=== PATIENT | male | born 1940 | race Caucasian/White ===

== ENCOUNTER 2022-08-12 08:24 | Oncology outpatient (recurring) (ONCR) | payer MEDICARE, MEDICAID, SELFPAY | END 2022-09-03 23:59 | disposition home or self-care (01) | PROVIDERS: Visit Provider Internal Medicine Hematology & Oncology | DX: C18.7 Malignant neoplasm of sigmoid colon (principal); C78.6 Secondary malignant neoplasm of retroperitoneum and peritoneum; Z93.3 Colostomy status; Z90.49 Acquired absence of other specified parts of digestive tract; Z87.891 Personal history of nicotine dependence | CPT/HCPCS: 99204 ==

== ENCOUNTER 2022-09-16 10:20 | Outpatient (CLI) | payer MEDICARE, MEDICAID, SELFPAY ==
--- NOTE | 2022-09-16 10:29 | FL_ITS ---
WS: [id number] FL enema w gastrografin [id number] REASON FOR EXAM: RECTOSIGMOID CA/COLONIC MASS/S/P PARTIAL RESECTION OF COLON FLUOROSCOPY TIME: 5min [id number] # OF SPOT FILMS: Multiple FINDINGS: Marr catheter was advanced through the ostomy site (at the level of the left transverse process of L 3) and into the mid left colon. The Marr balloon was inflated and water-soluble contrast injected de monstrating a normal remaining left colon, transverse colon, and right colon with filling of the appe ndix. Marr catheter was inserted into the rectum and water-soluble contrast injected. A very small rectal pouch is present with the distal extent at the level of the last sacral segment. There is no extravas ation of contrast from the rectal pouch. FL/FL enema w gastrografin [id number] IMPRESSION: Examination of the postoperative colon, per rectum and per colostomy as above.
[2022-09-16] MEDS: diatrizoate meglumine 120 mL Sol PR (12:28)
== END 2022-09-16 10:21 | disposition home or self-care (01) ==
LOC: RAD 10:25
DX: K63.89 Other specified diseases of intestine (principal); C19 Malignant neoplasm of rectosigmoid junction; Z90.49 Acquired absence of other specified parts of digestive tract
CPT/HCPCS: 74270; Q9963

== ENCOUNTER 2022-12-10 10:49 | Oncology outpatient (recurring) (ONCR) | payer MEDICARE, MEDICAID, SELFPAY ==
[2022-12-10 10:53] VITALS: BP 141/78; RESP 18; TEMP 36.8; O2SAT 98
[2022-12-10 11:23] LABS: Basophils # 0.1 10^3/uL (0.0-0.1); Basophils % 1.5 %; Eosinophils # 0.5 10^3/uL (0.0-0.8); Eosinophils % 5.7 %; Hematocrit 46.8 % (42.0-52.0); Hemoglobin 14.4 g/dL (11.7-16.6); Lymphocytes # 1.8 10^3/uL (0.8-4.8); Lymphocytes % 19.9 %; Mean Corpuscular HGB Conc 30.8 g/dL (30.0-36.0); Mean Corpuscular Hemoglobin 26.4 pg (28.0-34.0); Mean Corpuscular Volume 85.9 fl (80-94); Mean Platelet Volume 9.8 fL (7.4-10.4); Monocytes # 0.8 10^3/uL (0.2-0.9); Neutrophils # 5.62 10^3/uL (1.8-7.7); Neutrophils % 63.7 %; Nucleated Red Blood Cells % 0 %; Platelet Count 289 10^3/cmm (130-400); Red Blood Count 5.45 10^6/uL (4.1-5.3); Red Cell Distribution Width 15.5 % (12.1-15.1); White Blood Count 8.8 10^3/uL (4.0-10.0)
[2022-12-10 12:09] LABS: Carcinoembryonic Antigen 1.9 ng/mL (0.0-4.7)
[2022-12-10 12:20] LABS: Alanine Aminotransferase 13 U/L (0-41); Albumin Level 4.3 g/dL (3.5-5.2); Alkaline Phosphatase 61 U/L (40-130); Anion Gap 16.2 (5-19); Aspartate Amino Transferase 14 U/L (0-40); Blood Urea Nitrogen 12 mg/dL (8-23); Calcium 9.3 mg/dL (8.5-10.5); Carbon Dioxide 24 mmol/L (22-29); Chloride 100 mmol/L (98-107); Globulin 2.9 g/dL (1.3-4.6); Glucose 73 mg/dL (65-115); Osmolality Calculated 280 mOsm/kg (285-295); Potassium 4.2 mmol/L (3.5-5.1); Sodium 136 mmol/L (136-145); Total Bilirubin 0.7 mg/dL (0.15-1.2); Total Protein 7.2 g/dL (6.6-8.7)
== END 2023-01-03 23:59 | disposition home or self-care (01) ==
PROVIDERS: Visit Provider Internal Medicine Hematology & Oncology
DX: C18.7 Malignant neoplasm of sigmoid colon (principal); C78.6 Secondary malignant neoplasm of retroperitoneum and peritoneum; Z93.3 Colostomy status; Z90.49 Acquired absence of other specified parts of digestive tract; Z87.891 Personal history of nicotine dependence
CPT/HCPCS: 36415; 80053; 82378; 85025; 99214

== ENCOUNTER 2023-03-12 11:04 | Oncology outpatient (recurring) (ONCR) | payer MEDICARE, MEDICAID, SELFPAY ==
[2023-03-12 11:06] VITALS: BMI 29.7
[2023-03-12 11:07] VITALS: BP 129/75; PULSE 74; RESP 18; TEMP 36.4; O2SAT 96
[2023-03-12 11:28] LABS: Basophils # 0.2 10^3/uL (0.0-0.1); Basophils % 1.6 %; Eosinophils # 0.6 10^3/uL (0.0-0.8); Eosinophils % 5.8 %; Hematocrit 49.5 % (37-53); Lymphocytes # 1.8 10^3/uL (0.8-4.8); Lymphocytes % 19.3 %; Mean Corpuscular HGB Conc 32.9 g/dL (30-55); Mean Corpuscular Hemoglobin 29.4 pg (27-33); Mean Corpuscular Volume 89.2 fl (82-101); Mean Platelet Volume 9.3 fL (7.4-10.4); Monocytes # 0.9 10^3/uL (0.2-0.9); Monocytes % 9.7 %; Neutrophils # 5.96 10^3/uL (1.8-7.7); Neutrophils % 63.2 %; Nucleated Red Blood Cells % 0 %; Platelet Count 267 10^3/cmm (157-399); Red Blood Count 5.55 10^6/uL (3.85-5.65); Red Cell Distribution Width 14.6 % (12.1-15.1); White Blood Count 9.44 10^3/uL (3.29-11.43)
[2023-03-12 11:52] LABS: Carcinoembryonic Antigen 1.8 ng/mL (0.0-4.7)
[2023-03-12 12:03] LABS: Alanine Aminotransferase 20 U/L (0-41); Albumin Level 4.4 g/dL (3.5-5.2); Alkaline Phosphatase 50 U/L (40-130); Anion Gap 15.6 (5-19); Aspartate Amino Transferase 19 U/L (0-40); Blood Urea Nitrogen 14 mg/dL (8-23); Calcium 9.5 mg/dL (8.5-10.5); Carbon Dioxide 25 mmol/L (22-29); Chloride 101 mmol/L (98-107); Globulin 2.7 g/dL (1.3-4.6); Glucose 90 mg/dL (65-115); Osmolality Calculated 284 mOsm/kg (285-295); Potassium 4.6 mmol/L (3.5-5.1); Sodium 137 mmol/L (136-145); Total Bilirubin 0.4 mg/dL (0.15-1.2); Total Protein 7.1 g/dL (6.6-8.7)
== END 2023-04-05 23:59 | disposition home or self-care (01) ==
PROVIDERS: Internal Medicine Medical Oncology; Visit Provider Internal Medicine Hematology & Oncology
DX: C18.7 Malignant neoplasm of sigmoid colon (principal); C78.6 Secondary malignant neoplasm of retroperitoneum and peritoneum; Z93.3 Colostomy status; Z90.49 Acquired absence of other specified parts of digestive tract; Z87.891 Personal history of nicotine dependence; Z53.9 Procedure and treatment not carried out, unspecified reason
CPT/HCPCS: 36415; 80053; 82378; 85025; 99214

== ENCOUNTER 2023-06-11 09:03 | Outpatient (CLI) | payer MEDICARE, MEDICAID, SELFPAY ==
[2023-06-11] MEDS: iohexol 350 mg/mL 500 mL Btl (per mL) PO (09:34)
--- NOTE | 2023-06-11 10:00 | CT_ITS ---
WS: [id number] CT CHEST, ABDOMEN AND PELVIS WITH CONTRAST HISTORY: History of colon cancer. TECHNIQUE: Contiguous 5 mm axial imaging performed through the chest, abdomen and pelvis with IV cont rast, oral contrast has been provided. Coronal and sagittal reformats chest. Coronal and sagittal ref ormats through the abdomen and pelvis. All CT scans at [facility] use at least one of these d ose optimization techniques: automated exposure control; mA and/or kV adjustment per patient size (in cludes targeted exams where dose is matched to clinical indication); or iterative reconstruction. CONTRAST: Omnipaque 350; 100 mL IV. DLP: 1226.49 mGy.cm COMPARISON: None available. Chest CT: No pulmonary mass or nodules. No pneumonia. Mild dependent changes at the lung bases. Moder ate atherosclerotic plaque in the thoracic aorta. No aneurysm. Normal size pulmonary artery. There ar e a few small mediastinal and hilar lymph nodes. The largest lymph node along the RIGHT superior hilu m measures 10 mm. Normal size heart. No pericardial or pleural effusions. Small hiatal hernia. Abdomen CT: Diffuse marked hepatic steatosis. There are 2 areas of decreased attenuation in the RIGHT lobe of the liver. 1 low-attenuation nodule measures 14 mm. More peripheral mass measures 13 mm. Neg ative gallbladder. Normal spleen with granulomata. Normal adrenal glands. Normal pancreas. Bilateral renal hypodensities. Some of these are too small to characterize. Others are probably cysts or comple x cyst. Cortical thinning upper pole LEFT kidney. There are additional bilateral nonobstructing renal calculi. No hydronephrosis. Moderate atherosclerotic plaque within the abdominal aorta. There is sof t and calcified plaque. No aneurysm. Short segment occlusion versus high-grade stenosis proximal RIGH T common iliac artery. Normal appearance of the stomach. No small bowel obstruction. Normal appendix. RIGHT lower quadrant c olostomy. Deisi's pouch is negative. Surgical clips are evident. No adjacent soft tissue mass. No stranding in the mesorectal fat. No ascites. There are several small lymph nodes. Subcentimeter lymph node adjacent to the LEFT renal vein. Shotty retroperitoneal lymph nodes. There is small bilateral iliac lymph nodes. No inguinal lym ph nodes. Pelvic CT: Urinary bladder is well distended. Markedly enlarged prostate gland. Prostate measures 6.6 x 5.6 x 8.2 cm. Encroaches into the urinary bladder. Sclerotic bone lesion in the RIGHT ilium. IMPRESSION: 1. No metastatic pulmonary nodules or masses. 2. Hepatic steatosis throughout the liver. There are 2 low-attenuation masses in the RIGHT lobe of th e liver. Early metastatic disease is within the differential. 1 of these lesions may be a hemangioma. Complex cyst within the differential. No prior studies for comparison. 3. LEFT lower quadrant colostomy. 4. No recurrent mass at Campbell's pouch. 5. There are small retroperitoneal and common iliac chain lymph nodes. There are no prior studies for comparison to evaluate for any interval change. 6. No ascites. 7. Sclerotic focus RIGHT ilium. Probably a sclerotic focus related to a bone island. Cannot completel y exclude metastatic bone lesion.
[2023-06-11 10:39] LABS: Blood Urea Nitrogen 12 mg/dL (8-23)
[2023-06-11] MEDS: iohexol 350 mg/mL 500 mL Btl (per mL) IV (10:58)
== END 2023-06-11 09:04 | disposition home or self-care (01) ==
LOC: RAD 09:03
PROVIDERS: PCP Family Medicine; Visit Provider Nurse Practitioner Family
DX: C18.7 Malignant neoplasm of sigmoid colon (principal)
CPT/HCPCS: 71260; 74177; 82565; 84520; Q9967

== ENCOUNTER 2023-06-18 13:47 | Oncology outpatient (recurring) (ONCR) | payer MEDICARE, MEDICAID, SELFPAY ==
[2023-06-18 13:59] VITALS: BP 144/78; PULSE 85; RESP 16; TEMP 36.9; O2SAT 97
[2023-06-18 14:22] LABS: Basophils # 0.1 10^3/uL (0.0-0.1); Basophils % 1.4 %; Eosinophils # 0.6 10^3/uL (0.0-0.8); Eosinophils % 6.3 %; Lymphocytes # 2.1 10^3/uL (0.8-4.8); Lymphocytes % 21.5 %; Mean Corpuscular HGB Conc 33.1 g/dL (30-55); Mean Corpuscular Hemoglobin 29.3 pg (27-33); Mean Corpuscular Volume 88.8 fl (82-101); Monocytes % 9.9 %; Neutrophils # 5.85 10^3/uL (1.8-7.7); Neutrophils % 60.4 %; Nucleated Red Blood Cells % 0 %; Platelet Count 266 10^3/cmm (157-399); Red Blood Count 5.52 10^6/uL (3.85-5.65); Red Cell Distribution Width 13.8 % (12.1-15.1)
[2023-06-18 14:48] LABS: Carcinoembryonic Antigen 1.6 ng/mL (0.0-4.7)
[2023-06-18 14:59] LABS: Alanine Aminotransferase 46 U/L (0-41); Albumin Level 4.4 g/dL (3.5-5.2); Alkaline Phosphatase 64 U/L (40-130); Anion Gap 18.9 (5-19); Aspartate Amino Transferase 32 U/L (0-40); Blood Urea Nitrogen 12 mg/dL (8-23); Calcium 9.7 mg/dL (8.5-10.5); Carbon Dioxide 22 mmol/L (22-29); Chloride 98 mmol/L (98-107); Glucose 95 mg/dL (65-115); Osmolality Calculated 278 mOsm/kg (285-295); Potassium 4.9 mmol/L (3.5-5.1); Sodium 134 mmol/L (136-145); Total Bilirubin 0.4 mg/dL (0.15-1.2); Total Protein 7.4 g/dL (6.6-8.7)
== END 2023-07-06 23:59 | disposition home or self-care (01) ==
PROVIDERS: Nurse Practitioner Family; PCP Family Medicine; Visit Provider Internal Medicine Hematology & Oncology
DX: C18.7 Malignant neoplasm of sigmoid colon (principal); C78.6 Secondary malignant neoplasm of retroperitoneum and peritoneum; Z93.3 Colostomy status; Z90.49 Acquired absence of other specified parts of digestive tract; Z87.891 Personal history of nicotine dependence
CPT/HCPCS: 36415; 80053; 82378; 85025; 99214

== ENCOUNTER → 2023-08-27 13:36 | Outpatient (BNVA) | payer MEDICARE, MEDICAID, SELFPAY | PROVIDERS: PCP Family Medicine; Referring Provider Family Medicine; Visit Provider Nurse Practitioner | DX: M19.012 Primary osteoarthritis, left shoulder (principal); M75.22 Bicipital tendinitis, left shoulder; M25.512 Pain in left shoulder; G89.29 Other chronic pain | CPT/HCPCS: 20610; 99204; J1100; J2795; J3301 ==

== ENCOUNTER 2023-09-09 10:36 | Oncology outpatient (recurring) (ONCR) | payer MEDICARE, MEDICAID, SELFPAY ==
[2023-09-09 11:15] LABS: Basophils # 0.1 10^3/uL (0.0-0.1); Basophils % 0.7 %; Eosinophils # 0.3 10^3/uL (0.0-0.8); Eosinophils % 2.1 %; Hematocrit 54.3 % (37-53); Lymphocytes # 1.8 10^3/uL (0.8-4.8); Lymphocytes % 11.8 %; Mean Corpuscular HGB Conc 32.2 g/dL (30-55); Mean Corpuscular Hemoglobin 29.6 pg (27-33); Mean Corpuscular Volume 91.7 fl (82-101); Mean Platelet Volume 9.1 fL (7.4-10.4); Monocytes % 6.7 %; Neutrophils # 12.14 10^3/uL (1.8-7.7); Neutrophils % 78.2 %; Nucleated Red Blood Cells % 0 %; Platelet Count 268 10^3/cmm (157-399); Red Blood Count 5.92 10^6/uL (3.85-5.65); Red Cell Distribution Width 14.2 % (12.1-15.1); White Blood Count 15.51 10^3/uL (3.29-11.43)
[2023-09-09 11:43] LABS: Carcinoembryonic Antigen 1.9 ng/mL (0.0-4.7)
[2023-09-09 11:54] LABS: Alanine Aminotransferase 40 U/L (0-41); Alkaline Phosphatase 59 U/L (40-130); Blood Urea Nitrogen 18 mg/dL (8-23); Calcium 9.5 mg/dL (8.5-10.5); Carbon Dioxide 25 mmol/L (22-29); Chloride 95 mmol/L (98-107); Globulin 3.5 g/dL (1.3-4.6); Glucose 95 mg/dL (65-115); Osmolality Calculated 282 mOsm/kg (285-295); Sodium 135 mmol/L (136-145); Total Bilirubin 0.7 mg/dL (0.15-1.2); Total Protein 7.5 g/dL (6.6-8.7)
[2023-09-09 12:03] LABS: Anion Gap 19.4 (5-19); Aspartate Amino Transferase 23 U/L (0-40); Potassium 4.4 mmol/L (3.5-5.1)
== END 2023-10-05 23:59 | disposition home or self-care (01) ==
PROVIDERS: Nurse Practitioner Family; PCP Family Medicine; Visit Provider Internal Medicine Hematology & Oncology
DX: Z93.3 Colostomy status; Z90.49 Acquired absence of other specified parts of digestive tract; Z87.891 Personal history of nicotine dependence; Z08 Encounter for follow-up examination after completed treatment for malignant neoplasm; Z85.048 Personal history of other malignant neoplasm of rectum, rectosigmoid junction, and anus; R35.1 Nocturia; R35.0 Frequency of micturition
CPT/HCPCS: 36415; 80053; 82378; 85025; 99214

== ENCOUNTER → 2023-09-24 09:00 | Outpatient (BNVA) | payer MEDICARE, MEDICAID, SELFPAY | PROVIDERS: PCP Family Medicine; Visit Provider Nurse Practitioner | DX: M19.012 Primary osteoarthritis, left shoulder (principal); M75.22 Bicipital tendinitis, left shoulder | CPT/HCPCS: 99213 ==

== ENCOUNTER 2023-12-04 11:33 | Oncology outpatient (recurring) (ONCR) | payer MEDICARE, MEDICAID, SELFPAY ==
[2023-12-04 12:31] LABS: Basophils # 0.1 10^3/uL (0.0-0.1); Eosinophils # 0.5 10^3/uL (0.0-0.8); Eosinophils % 5.2 %; Hematocrit 49.4 % (37-53); Lymphocytes % 19.5 %; Mean Corpuscular HGB Conc 32.8 g/dL (30-55); Mean Corpuscular Hemoglobin 29.6 pg (27-33); Mean Corpuscular Volume 90.1 fl (82-101); Mean Platelet Volume 9.6 fL (7.4-10.4); Monocytes # 1.2 10^3/uL (0.2-0.9); Monocytes % 12.1 %; Neutrophils # 6.33 10^3/uL (1.8-7.7); Neutrophils % 61.6 %; Nucleated Red Blood Cells % 0 %; Platelet Count 267 10^3/cmm (157-399); Red Blood Count 5.48 10^6/uL (3.85-5.65); Red Cell Distribution Width 14.3 % (12.1-15.1); White Blood Count 10.26 10^3/uL (3.29-11.43)
[2023-12-04 12:47] LABS: Carcinoembryonic Antigen 1.8 ng/mL (0.0-4.7)
[2023-12-04 12:58] LABS: Alanine Aminotransferase 31 U/L (0-41); Albumin Level 4.1 g/dL (3.5-5.2); Alkaline Phosphatase 56 U/L (40-130); Anion Gap 13.5 (5-19); Aspartate Amino Transferase 25 U/L (0-40); Blood Urea Nitrogen 14 mg/dL (8-23); Calcium 9.3 mg/dL (8.5-10.5); Carbon Dioxide 25 mmol/L (22-29); Chloride 105 mmol/L (98-107); Globulin 2.9 g/dL (1.3-4.6); Glucose 64 mg/dL (65-115); Lactate Dehydrogenase 208 U/L (135-225); Osmolality Calculated 287 mOsm/kg (285-295); Potassium 4.5 mmol/L (3.5-5.1); Sodium 139 mmol/L (136-145); Total Bilirubin 0.7 mg/dL (0.15-1.2)
[2023-12-08 13:04] LABS: Erythropoietin 12.9 mIU/mL (2.6-18.5)
== END 2023-12-05 23:59 | disposition home or self-care (01) ==
PROVIDERS: PCP Family Medicine; Visit Provider Internal Medicine Medical Oncology
DX: Z85.048 Personal history of other malignant neoplasm of rectum, rectosigmoid junction, and anus; Z93.3 Colostomy status; Z90.49 Acquired absence of other specified parts of digestive tract; Z87.891 Personal history of nicotine dependence; R35.1 Nocturia; R35.0 Frequency of micturition; Z53.9 Procedure and treatment not carried out, unspecified reason; C18.7 Malignant neoplasm of sigmoid colon
CPT/HCPCS: 36415; 80053; 81270; 81279; 81339; 81479; 82378; 82668; 83615; 85025; 99213

== ENCOUNTER → 2024-01-13 14:13 | Outpatient (BNVA) | payer MEDICARE, MEDICAID, SELFPAY | PROVIDERS: PCP Family Medicine; Visit Provider Nurse Practitioner | DX: M25.511 Pain in right shoulder (principal); M19.012 Primary osteoarthritis, left shoulder; M75.22 Bicipital tendinitis, left shoulder; M25.512 Pain in left shoulder; G89.29 Other chronic pain | CPT/HCPCS: 20610; 73030; 99213; J1100; J2795; J3301 ==

== ENCOUNTER 2024-01-28 12:43 | Oncology outpatient (recurring) (ONCR) | payer MEDICARE, MEDICAID, SELFPAY ==
[2024-02-04 07:14] LABS: JAK2 Exon 12 Mutation NOT DETECTED (NOT DETECTED); JAK2 V617 Block Specimen ID blood; JAK2 V617 Clinical Indication other jak2; Specimen Source 4mL whole blood
== END 2024-02-04 23:59 | disposition home or self-care (01) ==
PROVIDERS: PCP Family Medicine; Visit Provider Internal Medicine Medical Oncology
DX: Z08 Encounter for follow-up examination after completed treatment for malignant neoplasm (principal); Z85.048 Personal history of other malignant neoplasm of rectum, rectosigmoid junction, and anus; Z93.3 Colostomy status; Z90.49 Acquired absence of other specified parts of digestive tract; Z87.891 Personal history of nicotine dependence; R35.1 Nocturia; R35.0 Frequency of micturition
CPT/HCPCS: 36415; 81279

== ENCOUNTER → 2024-04-16 08:30 | Outpatient (BNVA) | payer MEDICARE, MEDICAID, SELFPAY | PROVIDERS: PCP Family Medicine; Visit Provider Nurse Practitioner | DX: M19.011 Primary osteoarthritis, right shoulder (principal); M19.012 Primary osteoarthritis, left shoulder; Z71.89 Other specified counseling | CPT/HCPCS: 20610; J1100; J2795; J3301 ==

== ENCOUNTER 2024-06-02 11:04 | Oncology outpatient (recurring) (ONCR) | payer MEDICARE, MEDICAID, SELFPAY ==
[2024-06-02 12:04] LABS: Basophils # 0.2 10^3/uL (0.0-0.1); Basophils % 1.3 %; Eosinophils # 0.5 10^3/uL (0.0-0.8); Hematocrit 52.6 % (37-53); Lymphocytes # 1.8 10^3/uL (0.8-4.8); Lymphocytes % 15.9 %; Mean Corpuscular HGB Conc 31.4 g/dL (30-55); Mean Corpuscular Hemoglobin 29.3 pg (27-33); Mean Corpuscular Volume 93.4 fl (82-101); Mean Platelet Volume 9.4 fL (7.4-10.4); Monocytes # 1.3 10^3/uL (0.2-0.9); Neutrophils # 7.61 10^3/uL (1.8-7.7); Neutrophils % 66.7 %; Nucleated Red Blood Cells % 0 %; Platelet Count 260 10^3/cmm (157-399); Red Blood Count 5.63 10^6/uL (3.85-5.65); Red Cell Distribution Width 14.3 % (12.1-15.1)
[2024-06-02 12:18] LABS: Carcinoembryonic Antigen 2.2 ng/mL (0.0-4.7)
[2024-06-02 12:31] LABS: Alanine Aminotransferase 32 U/L (0-41); Alkaline Phosphatase 48 U/L (40-130); Anion Gap 17.1 (5-19); Aspartate Amino Transferase 21 U/L (0-40); Blood Urea Nitrogen 13 mg/dL (8-23); Calcium 9.2 mg/dL (8.5-10.5); Carbon Dioxide 22 mmol/L (22-29); Chloride 101 mmol/L (98-107); Globulin 2.8 g/dL (1.3-4.6); Glucose 76 mg/dL (65-115); Osmolality Calculated 281 mOsm/kg (285-295); Potassium 4.1 mmol/L (3.5-5.1); Sodium 136 mmol/L (136-145); Total Bilirubin 0.5 mg/dL (0.15-1.2); Total Protein 6.8 g/dL (6.6-8.7)
== END 2024-06-05 23:59 | disposition home or self-care (01) ==
PROVIDERS: Nurse Practitioner Family; PCP Family Medicine; Visit Provider Internal Medicine Medical Oncology
DX: Z85.048 Personal history of other malignant neoplasm of rectum, rectosigmoid junction, and anus; Z93.3 Colostomy status; Z90.49 Acquired absence of other specified parts of digestive tract; Z87.891 Personal history of nicotine dependence; R35.1 Nocturia; R35.0 Frequency of micturition; C18.7 Malignant neoplasm of sigmoid colon; C20 Malignant neoplasm of rectum
CPT/HCPCS: 36415; 80053; 82378; 85025; 99214

== ENCOUNTER 2024-06-16 13:48 | Outpatient (CLI) | payer MEDICARE, MEDICAID, SELFPAY ==
--- NOTE | 2024-06-16 15:00 | CT_ITS ---
WS: [id number] CT CHEST, ABDOMEN AND PELVIS WITH CONTRAST HISTORY: Follow-up colon cancer. TECHNIQUE: Contiguous 5 mm axial imaging performed through the chest, abdomen and pelvis with IV cont rast, oral contrast has been provided. Coronal and sagittal reformats chest. Coronal and sagittal ref ormats through the abdomen and pelvis. All CT scans at [facility] use at least one of these d ose optimization techniques: automated exposure control; mA and/or kV adjustment per patient size (in cludes targeted exams where dose is matched to clinical indication); or iterative reconstruction. CONTRAST: Omnipaque 350; 100 mL IV. DLP: 1319.19 mGy.cm COMPARISON: 06/11/2023, 05/28/[address]: Poor inspiratory effort. Crowding of the lung markings due to poor inspiration. Interstitia l thickening and prominence is likely related to the inspiration. No mass or nodule. Mild dependent c hanges at the lung bases. Moderate atherosclerotic plaque in the thoracic aorta is reidentified. Ther e is calcified and noncalcified plaque. Noncalcified plaque extends into the lumen but has not progre ssed. Normal size pulmonary arteries. No pericardial or pleural effusions. No adenopathy in the media stinum, hilum or axilla. Heart remains normal size. Small hiatal hernia. Abdomen CT: Liver is slightly enlarged. Reidentified are 2 areas in the RIGHT lobe of the liver of de creased attenuation which were present on 06/11/2023 without increase in size. In the central RIGHT lo be well-circumscribed 14 mm mass is identified. Towards the periphery of the RIGHT lobe of the liver is a 10 mm mass. These are both similar to 06/11/2023 without increase in size therefore lung likely m etastatic. Portal vein is normal. Gallbladder and spleen are negative. Granulomata are noted in the s pleen. Tiny low-attenuation area adjacent to the proximal body of the pancreas is probably external f at. No pancreatic duct dilatation. Normal adrenal glands. Kidneys are normal size. Bilateral hypodens ities within each renal cortex and nonobstructing calcifications in the renal pelves. Some of these l ow-attenuation lesions are too small to characterize and others are not completely cystic. The most c oncerning is a low-attenuation nodule measuring 12 mm from the mid lateral LEFT kidney at an area of scarring and loss of cortical volume. Moderate atherosclerotic plaque abdominal aorta. No contrast en hancing the proximal RIGHT common iliac artery as seen on the prior study. Reconstitution more distal ly. Stomach is well distended with contrast. No small bowel obstruction. RIGHT lower quadrant colostomy. Campbell's pouch. Sutures at the pouch are identified. No recurrent mass. No ascites or adenopathy. Pelvic CT: Prostate gland is markedly enlarged and lobulated and heterogeneous. Prostate extends into the urinary bladder. 6 mm calcification in the urinary bladder closely associated with the orifice o f the RIGHT ureter. Stable sclerotic lesion in the RIGHT ilium. CT/CT chest abdpel w/*[id number] IMPRESSION: 1. No metastatic pulmonary nodules identified or thoracic adenopathy. 2. 2 low-attenuation masses in the RIGHT lobe of the liver are stable. No prog ression in size. No new nodules. 3. LEFT lower quadrant colostomy. 4. No retroperitoneal or mesenteric lymphadenopathy or ascites. 5. 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 6. New 6 mm calcification in the urinary bladder close associated the orifice of the RIGHT ureter. Due to a recently passed ureteral stone most likely. 7. Marked enlargement and heterogeneity of the prostate gland encroaching into the bladder. 8. Bilateral cortical cystic and complex cystic masses in each kidney. The mos t concerning masses 12 mm in the mid lateral LEFT kidney at an area of scarring and volume loss. Recommend reevaluation in 6 months by renal mass CT protocol. 9. No change sclerotic focus RIGHT ilium.
[2024-06-16] MEDS: iohexol 350 mg/mL 500 mL Btl (per mL) PO (15:46)
[2024-06-16] MEDS: iohexol 350 mg/mL 500 mL Btl (per mL) IV (15:47)
== END 2024-06-16 13:49 | disposition home or self-care (01) ==
LOC: RAD 13:49
PROVIDERS: PCP Family Medicine; Visit Provider Nurse Practitioner Family
DX: C18.7 Malignant neoplasm of sigmoid colon (principal); R16.0 Hepatomegaly, not elsewhere classified; I74.5 Embolism and thrombosis of iliac artery; N21.0 Calculus in bladder; N40.0 Benign prostatic hyperplasia without lower urinary tract symptoms; Q61.02 Congenital multiple renal cysts
CPT/HCPCS: 71260; 74177

== ENCOUNTER 2024-06-23 09:47 | Outpatient (RCR) | payer MEDICARE, MEDICAID, SELFPAY | END 2024-07-06 23:59 | disposition home or self-care (01) | LOC: SPT 09:47 | PROVIDERS: PCP Family Medicine; Visit Provider Nurse Practitioner Family | DX: M62.81 Muscle weakness (generalized) (principal); M25.551 Pain in right hip; R53.81 Other malaise; G89.29 Other chronic pain | CPT/HCPCS: 97161 ==

== ENCOUNTER → 2024-07-20 11:00 | Outpatient (BNVA) | payer MEDICARE, MEDICAID, SELFPAY | PROVIDERS: PCP Family Medicine; Visit Provider Nurse Practitioner | DX: M19.011 Primary osteoarthritis, right shoulder (principal); M19.012 Primary osteoarthritis, left shoulder; Z71.89 Other specified counseling | CPT/HCPCS: 20610; J1100; J2795; J3301 ==

== ENCOUNTER 2024-11-04 13:10 | Inpatient (IN) | payer MEDICARE, MEDICAID, SELFPAY ==
[2024-11-04] VITALS (7 sets, daily range): BP systolic 123–166; BP diastolic 67–98; PULSE 97–106; RESP 16–18; TEMP 36.4–37.2; O2SAT 90–96; BMI 29.5; BMI 31.9
--- NOTE | 2024-11-04 13:21 | CTR_ITS ---
PROCEDURE INFORMATION: Exam: CT Head Without Contrast Exam date and time: 11/04/2024 1:39 PM Age: 84 years old Clinical indication: Injury or trauma; Fall; Blunt trauma (contusions or hematomas); HX of colon cancer TECHNIQUE: Imaging protocol: Computed tomography of the head without contrast. Radiation optimization: All CT scans at this facility use at least one of these dose optimization techniques: automated exposure control; mA and/or kV adjustment per patient size (includes targeted exams where dose is matched to clinical indication); or iterative reconstruction. COMPARISON: CT cervical spin wo con* [id number] 11/04/2024 1:39 PM RADIATION DOSE METRICS: Total DLP (mGy-cm): 334.5 FINDINGS: Brain: There is generalized brain atrophy. [place]-white differentiation is preserved. Amorphous lucency is present in the supratentorial white matter bilaterally. No evidence of intracranial hemorrhage or mass effect. Cerebral ventricles: No ventriculomegaly. Paranasal sinuses: Visualized sinuses are unremarkable. No fluid levels. Mastoid air cells: Partial opacification of the mastoid air cells and middle ear bilaterally. Bones: Unremarkable. No acute fracture. Soft tissues: Unremarkable. CT/CT head wo con* [id number] IMPRESSION: 1. Cerebral atrophy and chronic cerebral microvascular disease. 2. No evidence of acute intracranial process. 3. Possible bilateral otomastoiditis. Correlate clinically.
--- NOTE | 2024-11-04 13:21 | CTR_ITS ---
PROCEDURE INFORMATION: Exam: CT Cervical Spine Without Contrast Exam date and time: 11/04/2024 1:39 PM Age: 84 years old Clinical indication: Injury or trauma; Fall; Blunt trauma; HX of colon cancer TECHNIQUE: Imaging protocol: Computed tomography of the cervical spine without contrast. Radiation optimization: All CT scans at this facility use at least one of these dose optimization techniques: automated exposure control; mA and/or kV adjustment per patient size (includes targeted exams where dose is matched to clinical indication); or iterative reconstruction. COMPARISON: CT chest abdpel w/*[id number] 06/16/2024 3:29 PM RADIATION DOSE METRICS: Total DLP (mGy-cm): 334.5 FINDINGS: Bones: C4-T1 levels demonstrate loss of intervertebral disc space height and marginal spurring. No evidence of severe osseous canal or foraminal stenosis. Multilevel facet arthropathy. No subluxation. Vertebral bodies have normal height. No evidence of fracture. Atlanto odontoid proliferative changes. Lungs: Lung apices are normal. Soft tissues: Unremarkable. CT/CT cervical spin wo con* [id number] IMPRESSION: Multilevel cervical spondylosis without evidence of acute osseous abnormality.
--- NOTE | 2024-11-04 13:21 | XRR_ITS ---
PROCEDURE INFORMATION: Exam: XR Left Femur Exam date and time: 11/04/2024 1:25 PM Age: 84 years old Clinical indication: Injury or trauma; Fall; Blunt trauma; Thigh or upper leg; Left; Prior surgery; Surgery date: 1-6 months; Surgery type: Colon colostomy; , HX of colon cancer TECHNIQUE: Imaging protocol: Radiologic exam of the left femur. Views: 2 views. COMPARISON: CT chest abdpel w/*[id number] 06/16/2024 3:29 PM FINDINGS: Bones/joints: Left femoral neck fracture. Soft tissues: Unremarkable. XR/XR femur LT min 2V* [id number] IMPRESSION: Left femoral neck fracture.
--- NOTE | 2024-11-04 13:21 | XRR_ITS ---
PROCEDURE INFORMATION: Exam: XR Pelvis Exam date and time: 11/04/2024 1:25 PM Age: 84 years old Clinical indication: Injury or trauma; Fall; Blunt trauma (contusions or hematomas); Bilateral; Pelvic region; Prior surgery; Surgery date: 6+ months; Surgery type: Colon colostomy, HX of colon cancer TECHNIQUE: Imaging protocol: Radiologic exam of the pelvis. Views: 1 or 2 view. COMPARISON: CT chest abdpel w/*[id number] 06/16/2024 3:29 PM FINDINGS: Bones/joints: There is a left femoral neck fracture. There is no pelvic ring fracture. Soft tissues: Unremarkable. XR/XR pelvis 1-2V* [id number] IMPRESSION: Left femoral neck fracture.
--- NOTE | 2024-11-04 13:23 | ED_ITS ---
HPI - Fall 2 General: Chief Complaint: Fall Stated Complaint: fall Time Seen by Provider: 11/04/24 13:15 Source: patient and EMS Mode of arrival: EMS Limitations: no limitations History of Present Illness: Patient was transported to EMS from his home. Patient lives alone. States she was up in the night because of needing to urinate and apparently became lightheaded and fell to the floor. He states that he does not think he hit his head but he is not sure. He states he had pain in his left hip and leg and could not get up and so laid in the floor. He is on sure of how long he laid in the floor but he knows that it was dark when he fell. His niece called him later in the morning and when he failed to respond to the telephone call came by and found him in the floor and contacted EMS. He denies headache or focal weakness at this time. He states he has pain in his left lower leg and hip. He takes medications because of benign prostatic hypertrophy but no blood thinners or antiplatelet medications. He denies any history of syncope recent illness nausea vomiting diarrhea. He denies palpitations or chest pain. MD complaint: fall Fall from: standing and out of bed Place fall occurred: home Symptoms prior to fall: none Associated symptoms-after fall: Denies abdominal pain, chest pain or headache(s) Related Data Home Medications ?Medication ?Instructions ?Recorded ?Confirmed acetaminophen 500 mg capsule 500 mg PO Q6H PRN Fever O r Pain 09/09/23 11/04/24 Previous Rx's ?Medication ?Instructions ?Recorded meloxicam 15 mg tablet 15 mg PO DAILY Left shoulder pain 01/30/24 #90 tabs tamsulosin 0.4 mg capsule 0.4 mg PO BID #60 caps 04/13 Allergies Allergy/AdvReac Type Severity Reaction Status Date / Time No Known Allergies Allergy Verified 07/20/24 11:31 Review of Systems 2 Const: Denies: fever(s) or chills Eyes: Denies: change in vision Card: Denies: chest pain, palpitations or irregular heart rhythm Resp: Denies: dyspnea, productive cough or non-productive cough GI: Denies: abdominal pain, nausea, vomiting or diarrhea : Reports: urinary urgency, urinary hesitancy and nocturia; Denies: flank pain or difficulty urinating Musc: Reports: extremity pain Skin/Breast: Denies: rash or pruritus Neuro: Denies: headache(s), numbness in extremities or weakness in extremities Psych: Denies: anxiety, depression or mood swings PFSH ED 2 PFSH: Medical History Osteoarthritis of shoulders, bilateral Biceps tendonitis on left AC (acromioclavicular) joint arthritis Primary osteoarthritis, left shoulder Chronic left shoulder pain Adenocarcinoma of sigmoid colon Surgical History History of partial colectomy Partial colon resection low anastomosis with colostomy placement due to a strangulated inguinal hernia History of low anterior resection of rectum (03/19/22) Robotic assisted low anterior resection History of hernia repair (04/22/22) Left inguinal hernia repair and left orchiectomy Family History Mother CAD (coronary artery disease) Sister Stroke Denies family history of Diabetes Clotting disorder Dementia Hyperlipidemia Psychiatric illness Chronic kidney disease (CKD) Suicide Anesthesia complication Bleeding disorder Lung disease Cancer Hypertension Social History Smoking and tobacco/nicotine status: former use of tobacco/nicotine Quit status (tobacco/nicotine): has quit using Former quit date comment: Quit >50 years ago, smoked x 20 years Alcohol intake: never Physical Exam 2 Narrative: EXAM NARRATIVE: He is alert and oriented and cooperative. Const: COMMON NORMALS: no acute distress and alert GENERAL APPEARANCE: c ooperative NUTRITIONAL APPEARANCE: overweight HENMT: COMMON NORMALS: normocephalic, atraumatic, Normal nasal mucous membranes and turbinates present and moist oral mucous membranes HEAD & SCALP: normocephalic and atraumatic; no contusion and no laceration FACE & SINUS: face symmetric NOSE: Normal nasal mucous membranes and turbinates present Eye: COMMON NORMALS: Equal, round and reactive pupils present, EOMs intact bilaterally and conjunctivae normal CONJUNCTIVA: Yes conjunctivae normal P UPIL: Yes Equal, round and reactive pupils present Neck/C-Spine: COMMON NORMALS: full ROM CERVICAL SPINE: Yes cervical ROM normal, No Cervical spine tenderness, No step off deformity, No Paracervical muscle tenderness, No Paracervical spasm and No Trapezius muscle tenderness O THER: No midline tenderness or step-off is able to range his head voluntarily in normal ranges. Chest: COMMONS NORMALS: normal inspection of the chest and normal palpation of entire chest wall Resp: COMMON NORMALS: normal respiratory effort, No use of accessory muscles and clear to auscultation bilaterally AUSCULTATION: clear to auscultation bilaterally Cardio: COMMON NORMALS: regular rate, regular rhythm, No murmurs present (Cardio) and Peripheral pulses 2+ throughout RATE: regular rate RHYTHM: r egular rhythm PERIPHERAL PULSES: Peripheral pulses 2+ throughout GI: COMMON NORMALS: Normal to inspection, nondistended, normoactive bowel sounds present, Soft to palpation and non-tender PALPATION: Yes Soft to palpation Back/Pelvis: COMMON NORMALS: no thoracic nor lumbar tenderness PELVIS: Yes no pain with anterior-posterior compression and No tenderness over symphysis pubis Extremity: COMMON NORMALS: normal to inspection, capillary refill normal and no calf tenderness NARRATIVE EXTREMITY EXAM: He has tenderness along the lateral portion of his upper left leg without deformity. He has resistance to range of motion at the left hip but otherwise no significant positive findings on his extremity examination. Neuro: ALEXANDRA COMA SCALE: document GCS findings Osgood coma scale eye opening: Spontaneous Osgood coma scale verbal response: Orientated Alexandra coma scale motor response: Obey commands Osgood coma scale total score: 15 COMMON NORMALS: moves all extremities, no focal motor deficits and no sensory deficits noted SENSORIUM/ORIENTATION: Yes alert Psych: COMMON NORMALS: mental status grossly normal Skin: COMMON NORMALS: no rashes or lesions noted GENERAL SKIN EXAM: no rashes or lesions noted Course 2 Reevaluation(s): Reevaluation #1: I informed the patient of his injuries and that he will need hospitalization and orthopedic evaluation. He voiced understanding. He does have a leukocytosis which is likely demargination related to the fall, pain etc. however his urinalysis has not returned yet so we will certainly pay attention to that if necessary. His chest x-ray is clear and he has no other stigmata of acute infection etc. Time: 14:26 Reevaluation #2: Urinalysis has returned does have pyuria but no bacteria. Does have 1+ leukocyte Estrace. I will going to empirically give him 2 g of Rocephin while we are awaiting cultures etc. Time: 14:22 Consultations: Consultation #1: Discussed with orthopedic surgeon Dr. Gardner who acknowledged the patient's injury and he will be available to consult for consideration of operative repair. Time: 14:19 Consultation #2: Discussed with Dr. Shaw who will admit him to the hospitalist service Time: 14:26 Vital Signs: Vital signs: Vital Signs Temperature 98.9 F 11/04/24 13:10 Pulse Rate 105 H 11/04/24 13:10 Respiratory Rate 18 11/04/24 13:10 Blood Pressure 149/98 11/04/24 13:10 Pulse Oximetry 96 11/04/24 13:10 Oxygen Delivery Me thod Room Air 11/04/24 13:10 MDM - Fall Medical Decision Making This patient had a ground-level fall sometime in the night and wound up injuring himself with pain in his left leg that he could not get up from his fall and position. Family members found him and called EMS. On evaluation in the emergency department he was found to have focal pain in his left upper leg without any other findings to suggest acute trauma or injury. Workup included evaluating to ensure that there was no evidence of head or neck injury as well as other bony injury. Because of his prolonged downtime there was some concern about possible rhabdomyolysis and a CK was ordered as well. It was noted that he had suffered a closed femoral neck fracture of the left hip but no evidence of intracranial or cervical spine injuries. He did have a mild elevation in his CK levels but not to a significant pathologic level. Lab Data I reviewed the patient's lab results. 11/04/24 13:37 11/04/24 13:37 Radiology Impressions Cervical Spine CT 11/04/24 13:21 IMPRESSION: Multilevel cervical spondylosis without evidence of acute osseous abnormality. Femur X-Ray 11/04/24 13:21 IMPRESSION: Left femoral neck fracture. Head CT 11/04/24 13:21 IMPRESSION: 1. Cerebral atrophy and chronic cerebral microvascular disease. 2. No evidence of acute intracranial process. 3. Possible bilateral otomastoiditis. Correlate clinically. Pelvis X-Ray 11/04/24 13:21 IMPRESSION: Left femoral neck fracture. Chest X-Ray 11/04/24 14:08 Impression: Atherosclerosis. Laboratory Results WBC 19.50 10^3/uL (3.29-11.43) H 11/04/24 13:37 RBC 6.01 10^6/uL (3.85-5.65) H 11/04/24 13:37 Hgb 17.30 g/dL (11.27-16.99) H 11/04/24 13:37 Hct 53.1 % (37-53) H 11/04/24 13:37 MCV 88.4 fl (82-101) 11/04/24 13:37 MCH 28.8 pg (27-33) 11/04/24 13:37 MCHC 32.6 g/dL (30-55) 11/04/24 13:37 RDW 14.5 % (12.1-15.1) 11/04/24 13:37 Plt Count 243 10^3/cmm (157-399) 11/04/24 13:37 MPV 9.2 fL (7.4-10.4) 11/04/24 13:37 Neut % (Auto) 89.1 % 11/04/24 13:37 Lymph % (Auto) 2.9 % 11/04/24 13:37 [place] % (Auto) 6.8 % 11/04/24 13:37 Eos % (Auto) 0.2 % 11/04/24 13:37 Baso % (Auto) 0.5 % 11/04/24 13:37 Neut # (Auto) 17.39 10^3/uL (1.8-7.7) H 11/04/24 13:37 Lymph # (Auto) 0.6 10^3/uL (0.8-4.8) L 11/04/24 13:37 [place] # (Auto) 1.3 10^3/uL (0.2-0.9) H 11/04/24 13:37 Eos # (Auto) 0.0 10^3/uL (0.0-0.8) 11/04/24 13:37 Baso # (Auto) 0.1 10^3/uL (0.0-0.1) 11/04/24 13:37 Nucleated RBC % (auto) 0 % 11/04/24 13:37 Nucleated RBCs # 0.0 /100WBC 11/04/24 13:37 Sodium 136 mmol/L (136-145) 11/04/24 13:37 Potassium 4.5 mmol/L (3.5-5.1) 11/04/24 13:37 Chloride 98 mmol/L (98-107) 11/04/24 13:37 Carbon Dioxide 26 mmol/L (22-29) 11/04/24 13:37 Anion Gap 16.5 (5-19) 11/04/24 13:37 BUN 13 mg/dL (8-23) 11/04/24 13:37 Creatinine 0.8 mg/dL (0.7-1.2) 11/04/24 13:37 GFR Calculation Not Reportable 11/04/24 13:37 Glucose 134 mg/dL (65-115) H 11/04/24 13:37 Calculated Osmolality 284 mOsm/kg (285-295) L 11/04/24 13:37 Calcium 9.2 mg/dL (8.5-10.5) 11/04/24 13:37 Total Bilirubin 1.6 mg/dL (0.15-1.2) H 11/04/24 13:37 AST 42 U/L (0-40) H 11/04/24 13:37 ALT 37 U/L (0-41) 11/04/24 13:37 Alkaline Phosphatase 50 U/L (40-130) 11/04/24 13:37 Creatine Kinase 789 U/L (39-308) H* 11/04/24 13:37 Total Protein 7.6 g/dL (6.6-8.7) 11/04/24 13:37 Albumin 4.2 g/dL (3.5-5.2) 11/04/24 13:37 Globulin 3.4 g/dL (1.3-4.6) 11/04/24 13:37 Urine Color Red (Yellow) A 11/04/24 14:34 Urine Appearance Turbid (CLEAR) A 11/04/24 14:34 Urine pH 5.5 (5-7) 11/04/24 14:34 Ur Specific [place] 1.018 (1.005-1.030) 11/04/24 14:34 Urine Protein 2+ (Negative) A 11/04/24 14:34 Urine Glucose (UA) Negative (Normal) 11/04/24 14:34 Urine Ketones 1+ (Negative) H 11/04/24 14:34 Urine Blood 3+ (Negative) A 11/04/24 14:34 Urine Nitrate Negative (Negative) 11/04/24 14:34 Urine Bilirubin Negative (Negative) 11/04/24 14:34 Urine Urobilinogen 1.0 mg/dL (Negative) 11/04/24 14:34 Ur Leukocyte Esterase 1+ (Negative) A 11/04/24 14:34 Urine RBC >100 /hpf (0-2) H 11/04/24 14:34 Urine WBC 21-50 /hpf (0-5) H 11/04/24 14:34 Ur Squamous Epith Cells 0-5 /hpf (0-5) 11/04/24 14:34 Amorphous Sediment Not Reportable 11/04/24 14:34 Urine Bacteria None seen /hpf (NONE) 11/04/24 14:34 Hyaline Casts 5.07 /lpf 11/04/24 14:34 Urine Yeast 1+ /hpf H 11/04/24 14:34 All radiology interpretation(s) finalized by discharge EKG Data EKG 1: I personally reviewed and interpreted this EKG as follows: Interpretation: Contemporaneous review of resting EKG reveals a ventricular rate of 100 bpm. Normal NH interval, normal QRS duration, normal corrected QT interval. Normal axis. Consistent with borderline sinus tachycardia no acute ST-T wave changes noted. Discharge Plan Discharge Patient Disposition: Admitted As Inpatient Clinical Impression: Fall from ground level, Elevated CK Closed fracture of neck of left femur Qualifiers: Encounter type: initial encounter Qualified Code(s): S72.002A - Fracture of unspecified part of neck of left femur, initial encounter for closed fracture Condition: Stable Coding Level of Care Code ED Engine Boss for Sonia Ojeda
[2024-11-04 13:42] LABS: Basophils # 0.1 10^3/uL (0.0-0.1); Basophils % 0.5 %; Eosinophils % 0.2 %; Hematocrit 53.1 % (37-53); Lymphocytes # 0.6 10^3/uL (0.8-4.8); Lymphocytes % 2.9 %; Mean Corpuscular HGB Conc 32.6 g/dL (30-55); Mean Corpuscular Hemoglobin 28.8 pg (27-33); Mean Corpuscular Volume 88.4 fl (82-101); Mean Platelet Volume 9.2 fL (7.4-10.4); Monocytes # 1.3 10^3/uL (0.2-0.9); Monocytes % 6.8 %; Neutrophils # 17.39 10^3/uL (1.8-7.7); Neutrophils % 89.1 %; Nucleated Red Blood Cells % 0 %; Platelet Count 243 10^3/cmm (157-399); Red Blood Count 6.01 10^6/uL (3.85-5.65); Red Cell Distribution Width 14.5 % (12.1-15.1)
[2024-11-04 13:59] LABS: Alanine Aminotransferase 37 U/L (0-41); Albumin Level 4.2 g/dL (3.5-5.2); Alkaline Phosphatase 50 U/L (40-130); Anion Gap 16.5 (5-19); Aspartate Amino Transferase 42 U/L (0-40); Blood Urea Nitrogen 13 mg/dL (8-23); Calcium 9.2 mg/dL (8.5-10.5); Carbon Dioxide 26 mmol/L (22-29); Chloride 98 mmol/L (98-107); Globulin 3.4 g/dL (1.3-4.6); Glucose 134 mg/dL (65-115); Osmolality Calculated 284 mOsm/kg (285-295); Potassium 4.5 mmol/L (3.5-5.1); Sodium 136 mmol/L (136-145); Total Bilirubin 1.6 mg/dL (0.15-1.2); Total Protein 7.6 g/dL (6.6-8.7)
[2024-11-04 14:04] LABS: Creatine Phosphokinase 789 U/L (39-308)
--- NOTE | 2024-11-04 14:04 | ECG_ITS ---
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 Measurements Intervals [place] Rate: 100 P: 55 NH: 180 QRS: -16 QRSD: 86 T: 52 QT: 333 QTc: 430 Interpretive Statements SINUS TACHYCARDIA No previous ECG available for comparison Electronically Signed On 11-08-2024 10:37:56 CDT by Kashmir Swan M.D. [email or web address]
[2024-11-04] MEDS: lactated ringers 1,000 ML 999 ML IV (14:06)
--- NOTE | 2024-11-04 14:08 | XR_ITS ---
WS: [id number] Portable AP supine chest, 11/04/2024 Clinical Data: fall and hip fracture Comparison: Portable chest, 03/21/2022 Findings: No nodules, masses or effusions are seen. The heart is normal. The pulmonary vascularity is not increased. No pneumonia or pneumothorax is seen. The aortic arch and descending thoracic aorta show calcification and tortuosity. XR/XR chest 1V portable [id number] Impression: Atherosclerosis.
[2024-11-04] MEDS: ondansetron 2 mg/ML SDV 2 mL 4 MG IVP (14:43)
[2024-11-04] MEDS: fentaNYL 50 mcg/mL INJ 2mL IVP (14:45)
[2024-11-04 14:47] LABS: Bilirubin Urine Negative (Negative); Blood Urine 3+ (Negative); Glucose Urine UA Negative (Normal); Ketones Urine 1+ (Negative); Leukocyte Esterase Urine 1+ (Negative); Nitrate Urine Negative (Negative); Protein Urine 2+ (Negative); Specific Gravity, Urine 1.018 (1.005-1.030); Urine Appearance Turbid (CLEAR); pH Urine 5.5 (5-7)
[2024-11-04 14:52] LABS: Add Urine Microscopic? YES; Bacteria Urine None Seen /hpf; Hyaline Casts Urine 5.07 /lpf; RBC Urine >100 /hpf (0-2); Squamous Epithelial Cell Urine 0-5 /hpf (0-5); WBC Urine 21-50 /hpf (0-5)
[2024-11-04 15:10] LABS: UA Slide Review UA Slide Review Perf; Urine Color Red (Yellow)
[2024-11-04 15:11] LABS: Add Urine Culture? Yes
--- NOTE | 2024-11-04 15:19 | CTR_ITS ---
PROCEDURE INFORMATION: Exam: CT Abdomen And Pelvis Without Contrast Exam date and time: 11/04/2024 3:47 PM Age: 84 years old Clinical indication: Injury or trauma; Fall; Blunt; Generalized; Prior surgery; Surgery date: 6+ months; Surgery type: Colon colostomy; HX of colon cancer; Additional info: Flank pain TECHNIQUE: Imaging protocol: Computed tomography of the abdomen and pelvis without contrast. Radiation optimization: All CT scans at this facility use at least one of these dose optimization techniques: automated exposure control; mA and/or kV adjustment per patient size (includes targeted exams where dose is matched to clinical indication); or iterative reconstruction. COMPARISON: CT chest abdpel w/*[id number] 06/16/2024 3:29 PM RADIATION DOSE METRICS: Total DLP (mGy-cm): 1009.22 FINDINGS: Liver: Diffuse hepatic hypoattenuation. Gallbladder and biliary ducts: Normal. No calcified stones. No ductal dilation. Pancreas: Normal. No ductal dilation. Spleen: Normal. No splenomegaly. Adrenal glands: Normal. No mass. Kidneys and ureters: 4 x 6 x 9 mm left-sided proximal ureteral stone. Mild hydronephrosis. Bilateral nonobstructing renal calculi measuring up to 8 mm on the left. 12 mm probable hyperdense cysts in the mid left kidney. Stomach and bowel: Bowel: Postoperative changes from distal colectomy with left lower quadrant colostomy. Appendix: No evidence of appendicitis. Intraperitoneal space: Unremarkable. No free air. No significant fluid collection. Vasculature: Aortoiliac atherosclerotic disease is seen without evidence of aneurysm. Lymph nodes: Unremarkable. No enlarged lymph nodes. Urinary bladder: Urinary bladder decompressed by Marr catheter. Reproductive: Moderate nonspecific prostate enlargement. Bones/joints: Acute left femoral neck fracture with proximally 1.2 cm proximal displacement of the femoral shaft. Soft tissues: Stable small peristomal hernia containing nonobstructed small bowel. CT/CT abdomen pelvis wo con [id number] IMPRESSION: 1. Acute left femoral neck fracture with proximally 1.2 cm proximal displacement of the femoral shaft. 2. 4 x 6 x 9 mm left-sided proximal ureteral stone. Mild hydronephrosis. 3. Bilateral nonobstructing renal calculi measuring up to 8 mm on the left. 4. 12 mm probable hyperdense cysts in the mid left kidney. This could be further characterized with renal ultrasound if indicated. 5. Postoperative changes from distal colectomy with left lower quadrant colostomy. 6. Stable small peristomal hernia containing nonobstructed small bowel. 7. Hepatic steatosis. 8. Moderate nonspecific prostate enlargement. COMMENTS: Consistent with the [employer]'s Incidental Findings Committee white paper (J Am Gatito Radiol 2018): Any incidental renal lesion less than 1 cm or classified as too small to characterize, or any incidental cystic renal lesion characterized as simple-appearing, is likely benign. No follow-up imaging is recommended for these lesions per consensus recommendations based on imaging criteria.
--- NOTE | 2024-11-04 15:28 | P.HP_ITS ---
Providers/Chief Complaint 2 Primary Care Provider: Mark Thomas Chief Complaint: fall History of Present Illness Yon Thacker is a 84 year old male with a past medical history of adenocarcinoma of the sigmoid colon, status post colectomy, history of recurrent UTIs, who presents [facility] for ground-level fall. Patient tells me that today he was at home, he had gone to try to go to the bathroom, when he turned, and he slid to the ground, denies any head trauma, no preceding chest pain or palpitations or lightheadedness or dizziness or strokelike symptoms or seizure-like symptoms, was on the ground for some period of time, family was is worried that he is more confused than he normally is for the last day, currently denies any numbness, no facial droop no slurring of words, no focal weakness, but does complain of severe left hip pain, during my discussion he is alert to person, to place, time he can follow commands, but does at times become confused, Review of Systems 2 Const: Denies: fever(s) or chills Card: Denies: chest pain Resp: Denies: dyspnea GI: Denies: abdominal pain Medications/Allergies Home Medications ?Medication ?Instructions ?Recorded ?Confirmed ?Last Taken ?Type acetaminophen 500 mg capsule 500 mg PO Q6H PRN Fever O r Pain 09/09/23 11/04/24 Unknown History meloxicam 15 mg tablet 15 mg PO DAILY Left shoulder pain 01/30/24 11/04/24 Unknown Rx #90 tabs tamsulosin 0.4 mg capsule 0.4 mg PO BID #60 caps 04/1311/04/24 11/03/24 Rx Allergies Allergy/AdvReac Type Severity Reaction Status Date / Time No Known Allergies Allergy Verified 07/20/24 11:31 PFSH Acute 2 PFSH: Medical History Osteoarthritis of shoulders, bilateral Biceps tendonitis on left AC (acromioclavicular) joint arthritis Primary osteoarthritis, left shoulder Chronic left shoulder pain Adenocarcinoma of sigmoid colon Surgical History History of partial colectomy Partial colon resection low anastomosis with colostomy placement due to a strangulated inguinal hernia History of low anterior resection of rectum (03/19/22) Robotic assisted low anterior resection History of hernia repair (04/22/22) Left inguinal hernia repair and left orchiectomy Family History Mother CAD (coronary artery disease) Sister Stroke Denies family history of Diabetes Clotting disorder Dementia Hyperlipidemia Psychiatric illness Chronic kidney disease (CKD) Suicide Anesthesia complication Bleeding disorder Lung disease Cancer Hypertension Social History Smoking and tobacco/nicotine status: former use of tobacco/nicotine Quit status (tobacco/nicotine): has quit using Former quit date comment: Quit >50 years ago, smoked x 20 years Alcohol intake: never Vitals/I&O/Wt Last Vital Signs Temp 98.9 F 11/04/24 13:10 Pulse 105 H 11/04/24 13:10 Resp 18 11/04/24 13:10 BP 149/98 11/04/24 13:10 Pulse Ox 96 11/04/24 13:10 O2 Del Method Room Air 11/04/24 13:10 11/04/24 11/04/24 11/04/24 06:59 14:59 22:59 Intake Total 0 / 0 Balance 0 / 0 Weight last 48 hrs Weight 90.718 kg Physical Exam 2 Const: COMMON NORMALS: no acute distress ORIENTATION/CONSCIOUSNESS: Yes awake, Yes oriented to person, Yes oriented to place and Yes confused; not oriented to time Eye: COMMON NORMALS: Equal, round and reactive pupils present Resp: COMMON NORMALS: normal respiratory effort, No retractions, No use of accessory muscles and clear to auscultation bilaterally AUSCULTATION: clear to auscultation bilaterally Cardio: COMMON NORMALS: no JVD, regular rate, regular rhythm, S1 normal heart sound present and S2 normal heart sound present RATE: regular rate RHYTHM: regular rhythm HEART SOUNDS: S1 normal heart sound present and S2 normal heart sound present GI: COMMON NORMALS: Normal to inspection, nondistended, normoactive bowel sounds present, Soft to palpation and non-tender OTHER: Left colostomy in place : OTHER: Has left flank pain Back/Pelvis: OTHER: Left lower extremity, rotated outwards, left hip pain to palpation Extremity: COMMON NORMALS: no pedal edema Neuro: COMMON NORMALS: patient oriented x3, CN's II-XII intact bilaterally and moves all extremities Psych: COMMON NORMALS: mental status grossly normal Skin: NARRATIVE SKIN EXAM: Sepsis eval, patient has features secondary sepsis secondary UTI - DP PT pulses palpable, cap refill grea ter than 2 seconds, no mottling Urinary Catheter Management: Marr: Cath Placed During This Visit: yes Urinary Catheter Date of Insertion: 11/04/24 Urinary Catheter Time of Insertion: 14:38 Data 11/04/24 13:37 11/04/24 13:37 A&P Assessment and plan (1) Acute encephalopathy: (2) UTI (urinary tract infection): (3) Adenocarcinoma of sigmoid colon: (4) Closed fracture of neck of left femur: Plan Acute encephalopathy - Likely second to UTI - CT head - Neurochecks - Aspiration precautions Sepsis, source criteria was met, secondary UTI, given leukocytosis, - Has received fluid bolus in the emergency room - Will avoid any other fluid boluses given risk of fluid overload - Is hypertensive Urinary tract infection - CT scan abdomen pelvis - Continue Rocephin - Does have a leukocytosis will check lactic acid has received fluid bolus in the emergency room Rhabdomyolysis, IV fluids Adenocarcinoma of the sigmoid colon, with colostomy in place Left hip fracture - Dilaudid 0.5 mg IV push every 4 hours as needed for pain - Lovenox for DVT prophylaxis - Zofran for nausea - Full code PDMP PDMP Reviewed: Not Reviewed Attestations 2 Medical Necessity Statement*: Patient requires hospitalization, inpatient, greater than 2 midnights for left hip fracture, UTI, acute encephalopathy, sepsis Diagnoses Acute encephalopathy G93.40 UTI (urinary tract infection) N39.0 Adenocarcinoma of sigmoid colon C18.7 Closed fracture of neck of left femur S72.002A Encounter type: initial encounter
[2024-11-04] MEDS: morphine 4 mg/mL SDV 1 mL IVP (15:32)
[2024-11-04] MEDS: cefTRIAXone 1,000 mg SDV 1000 MG IVP (15:33)
[2024-11-04 15:57] LABS: Lactic Sepsis W/Reflex 2.8 mmol/L (0.5-2.2)
[2024-11-04 16:20] LABS: NT Pro B Type Natriuretic Pept 137 pg/mL (0-450); Procalcitonin 0.14 ng/mL (0-0.5)
--- NOTE | 2024-11-04 16:54 | PM.CONSULT ---
Providers/Reason For Consult Consulting Physician/Specialty*: Misael Gardner MD Orthopedic surgery Reason for Consult*: Left femoral neck fracture Attending Physician: Ubaldo Hirsch MD Primary Care Provider: Mark Thomas History of Present Illness History of Present Illness Yon Thacker is a 84 year old male who was at home today when he was in his bathroom and turned to move when he had a sharp stabbing pain in his left hip and collapsed to the floor. He is unable to bear weight was brought to the ED. X-rays there demonstrated a minimally displaced femoral neck fracture of the left hip. Patient was admitted through the hospitalist service. He is also found to have a slight UTI. It is thought that he had some encephalopathy secondary to the UTI which caused him to collapse and injure his hip. After admission orthopedic consultation was obtained for evaluation and treatment of the hip fracture. Review of Systems Const: Denies: fever(s) or chills Eyes: Denies: change in vision Card: Denies: chest pain, palpitations or irregular heart rhythm Resp: Denies: dyspnea, productive cough or non-productive cough GI: Denies: abdominal pain, nausea, vomiting or diarrhea : Reports: urinary urgency, urinary hesitancy and nocturia; Denies: flank pain or difficulty urinating Musc: Reports: extremity pain; Denies: joint warmth Skin/Breast: Denies: rash or pruritus Neuro: Denies: headache(s), numbness in extremities or weakness in extremities Psych: Denies: anxiety, depression or mood swings Medications/Allergies Home Medications ?Medication ?Instructions ?Recorded ?Confirmed ?Last Taken ?Type acetaminophen 500 mg capsule 500 mg PO Q6H PRN Fever Or Pain 09/09/23 11/04/24 Unknown History meloxicam 15 mg tablet 15 mg PO DAILY Left shoulder pain 01/30/24 11/04/24 Unknown Rx #90 tabs tamsulosin 0.4 mg capsule 0.4 mg PO BID #60 caps 04/13/24 11/04/24 11/03/24 Rx Allergies Allergy/AdvReac Type Severity Reaction Status Date / Time No Known Allergies Allergy Verified 07/20/24 11:31 PFSH Acute PFSH: Medical History Osteoarthritis of shoulders, bilateral Biceps tendonitis on left AC (acromioclavicular) joint arthritis Primary osteoarthritis, left shoulder Chronic left shoulder pain Adenocarcinoma of sigmoid colon Surgical History History of partial colectomy Partial colon resection low anastomosis with colostomy placement due to a strangulated inguinal hernia History of low anterior resection of rectum (03/19/22) Robotic assisted low anterior resection History of hernia repair (04/22/22) Left inguinal hernia repair and left orchiectomy Family History Mother CAD (coronary artery disease) Sister Stroke Denies family history of Diabetes Clotting disorder Dementia Hyperlipidemia Psychiatric illness Chronic kidney disease (CKD) Suicide Anesthesia complication Bleeding disorder Lung disease Cancer Hypertension Social History Smoking and tobacco/nicotine status: former use of tobacco/nicotine Quit status (tobacco/nicotine): has quit using Former quit date comment: Quit >50 years ago, smoked x 20 years Alcohol intake: never Dietary Habits: Caffeine: Yes Vitals/I&O/Wt Last Vital Signs Temp 98.9 F 11/04/24 13:10 Pulse 97 11/04/24 16:06 Resp 18 11/04/24 13:10 BP 158/69 11/04/24 16:06 Pulse Ox 91 11/04/24 16:06 O2 Del Method Room Air 11/04/24 13:10 11/04/24 11/04/24 11/04/24 06:59 14:59 22:59 Intake Total 0 / 0 Balance 0 / 0 Weight last 48 hrs Weight 200 lb Physical Exam Narrative: On orthopedic exam today patient is laying in bed and appears to be comfortable. States that pain medicine has helped him but prior to that he was quite uncomfortable. Left lower extremity is externally rotated however not shortened. Appears to be neurovascular intact distally with no other injuries identified. Urinary Catheter Management: Marr: Cath Placed During This Visit: yes Urinary Catheter Date of Insertion: 11/04/24 Urinary Catheter Time of Insertion: 14:38 Data 11/04/24 13:37 11/04/24 13:37 Other data: X-rays were reviewed by myself demonstrating femoral neck fracture. A&P Assessment and plan (1) Hip fracture, left: Left femoral neck fracture mildly displaced/angulated Plan Plan at this time is for endoprosthetic replacement of the hip. We will need to will await medical clearance prior to performing any type of surgery at this time. UTI is being treated at this point. But repeat labs should be done tomorrow to ensure that white blood cell count and other markers are going down. PDMP PDMP Reviewed: Not Reviewed Coding Level of Care Code Acute Code for [facility] Fwd Diagnoses Closed fracture of left hip, initial encounter S72.002A Encounter type: initial encounter Fracture type: closed
[2024-11-04 17:20] LABS: Reflex Lactate Order REFLEX LACTIC ORDERD
[2024-11-04 17:45] LABS: C Reactive Protein 29.6 mg/L (0.0-4.9); Thyroid Stimulating Hormone 2.68 uIU/mL (0.27-4.20)
[2024-11-04] MEDS: pantoprazole 40 mg SDV IVP (17:51)
[2024-11-04] MEDS: tamsulosin 0.4 mg Capsule PO (17:51)
[2024-11-04] MEDS: piperacillin-tazobactam 3.375 GM in sodium chloride 0.9% (plus) 50 ML IV (17:52)
[2024-11-04] MEDS: sodium chloride 0.9% 1,000 ML 75 ML IV (17:54)
--- NOTE | 2024-11-04 18:32 | PM.TDS ---
Transfer Summary Providers Date of Admission: 11/04/24 15:31 Date of Discharge/Transfer: 11/04/24 Attending Provider at Admission: Ubaldo Hirsch MD Attending Provider at Transfer: Ubaldo Hirsch MD Primary Care Provider: Mark Thomas Transfer Plans: Anticipated date of transfer: 11/04/24. Diagnoses at Discharge Discharge Diagnosis (1) Hip fracture, left: Status: Acute Qualifiers: Encounter type: initial encounter Fracture type: closed Qualified Code(s): S72.002A - Fracture of unspecified part of neck of left femur, initial encounter for closed fracture Reason for Visit Reason for Visit fall Hospital Course Hospital Course Yon Thacker is a 84 year old male with a past medical history of adenocarcinoma of the sigmoid colon, status post colectomy, history of recurrent UTIs, who presents [facility] for ground-level fall. Patient tells me that today he was at home, he had gone to try to go to the bathroom, when he turned, and he slid to the ground, denies any head trauma, no preceding chest pain or palpitations or lightheadedness or dizziness or strokelike symptoms or seizure-like symptoms, was on the ground for some period of time, family was is worried that he is more confused than he normally is for the last day, currently denies any numbness, no facial droop no slurring of words, no focal weakness, but does complain of severe left hip pain, during my discussion he is alert to person, to place, time he can follow commands, but does at times become confused, Assessment and plan (1) Acute encephalopathy: (2) UTI (urinary tract infection): (3) Adenocarcinoma of sigmoid colon: (4) Closed fracture of neck of left femur: Plan Acute encephalopathy - Likely second to UTI - CT head - Neurochecks - Aspiration precautions Sepsis, source criteria was met, secondary UTI, given leukocytosis, obstructive uropathy - Has received fluid bolus in the emergency room - Will avoid any other fluid boluses given risk of fluid overload - Is hypertensive Urinary tract infection with obstructive uropathy, sepsis - CT scan abdomen pelvis CT/CT abdomen pelvis wo con [id number] IMPRESSION: 1. Acute left femoral neck fracture with proximally 1.2 cm proximal displacement of the femoral shaft. 2. 4 x 6 x 9 mm left-sided proximal ureteral stone. Mild hydronephrosis. 3. Bilateral nonobstructing renal calculi measuring up to 8 mm on the left. - Continuezosyn -cutinue IVF -follow blood cultures - Rhabdomyolysis, IV fluids Adenocarcinoma of the sigmoid colon, with colostomy in place Left hip fracture -will need prosthetic replacement - Dilaudid 0.5 mg IV push every 4 hours as needed for pain - Lovenox for DVT prophylaxis - Zofran for nausea - Full code FOLLOW UPCT abdomen CT/CT abdomen pelvis wo con [id number] IMPRESSION: 1. Acute left femoral neck fracture with proximally 1.2 cm proximal displacement of the femoral shaft. 2. 4 x 6 x 9 mm left-sided proximal ureteral stone. Mild hydronephrosis. 3. Bilateral nonobstructing renal calculi measuring up to 8 mm on the left. -With leukocytosis, elevated lactic acid of 2.8, elevated CPK, CRP, [employer] pending - Findings highly suspicious for obstructive uropathy, with sepsis, secondary to left proximal ureteral stone - Spoke to orthopedic service, given fracture, orthopedic service plans on doing a prosthetic, - Given patient has sepsis, obstructive uropathy, UTI, high risk of surgical site infection, infection of the prosthetic before we can rule out bacteremia, and kidney stone has been taking care of - Discussed plan, patient will likely need urology evaluation, stenting of kidney, following sepsis, following blood cultures, and potentially once stable from this, bacteremia is ruled out, prosthetic can be placed - I saw patient, family members at bedside, he does report report chills, left hip pain, left flank pain, family reports a history of UTIs, history of sepsis - Discussed with family CT scan findings, my discussion with orthopedic service, and without urology evaluation, stenting of left ureter, ruling out bacteremia, there is a high risk of surgical site infection, prosthetic infection - After discussing risk benefits of all options, patient and family voiced understanding all questions answered, agreed to proceed to transfer to tertiary level center - Spoke to [facility], they have urology, have orthopedics, have medicine bed - Will transfer to [facility], if accepted, awaiting to discuss with hospitalist - For now I have continued IV fluids, patient has sepsis, has received a liter sepsis bolus, will avoid any further boluses due to risk of fluid overload, I broaden his [employer] coverage to Zosyn, follow lactic acid, CRP, [employer] pending Physical Exam Const: COMMON NORMALS: no acute distress and patient oriented x3 Resp: COMMON NORMALS: normal respiratory effort, No retractions, No use of accessory muscles and clear to auscultation bilaterally AUSCULTATION: clear to auscultation bilaterally Cardio: COMMON NORMALS: regular rate, regular rhythm, S1 normal heart sound present and S2 normal heart sound present RATE: regular rate RHYTHM: regular rhythm HEART SOUNDS: S1 normal heart sound present and S2 normal heart sound present GI: COMMON NORMALS: Normal to inspection, nondistended, normoactive bowel sounds present and non-tender Extremity: COMMON NORMALS: no pedal edema Neuro: COMMON NORMALS: patient oriented x3 Psych: COMMON NORMALS: mental status grossly normal Skin: NARRATIVE SKIN EXAM: Sepsis examination, DP PT pulses palpable, cap refill greater than 2 seconds, no mottling, Patient is septic, source is obstructive uropathy, UTI Urinary Catheter Management: Marr: Cath Placed During This Visit: yes Urinary Catheter Date of Insertion: 11/04/24 Urinary Catheter Time of Insertion: 14:38 TS Data Studies Completed and Pending Pending at discharge Category Date Time Status Blood Culture Routine Lab 11/04/24 17:35 Results Complete Blood Count w/Auto AM LABS Lab 11/05/24 04:00 Ordered Complete Blood Count w/Auto AM LABS Lab 11/06/24 04:00 Ordered Complete Blood Count w/Auto AM LABS Lab 11/07/24 04:00 Ordered Comprehensive Metabolic Panel AM LABS Lab 11/05/24 04:00 Ordered Comprehensive Metabolic Panel AM LABS Lab 11/06/24 04:00 Ordered Comprehensive Metabolic Panel AM LABS Lab 11/07/24 04:00 Ordered Hemoglobin A1C Routine Lab 11/04/24 13:37 Received Lactic Acid level (Lactate) Stat Lab 11/04/24 18:04 Received Magnesium AM LABS Lab 11/05/24 04:00 Ordered Magnesium AM LABS Lab 11/06/24 04:00 Ordered Magnesium AM LABS Lab 11/07/24 04:00 Ordered Phosphorus AM LABS Lab 11/05/24 04:00 Ordered Phosphorus AM LABS Lab 11/06/24 04:00 Ordered Phosphorus AM LABS Lab 11/07/24 04:00 Ordered Urine Culture Stat Lab 11/04/24 14:34 Received Completed Studies During Hospitalization Category Date Time Status CT abdomen pelvis wo con [id number] Stat Cat Scan 11/04/24 15:[address] cervical spin wo con* [id number] Stat Cat Scan 11/04/24 13:[address] head wo con* [id number] Stat Cat Scan 11/04/24 13:21 Completed XR chest 1V portable [id number] Stat Exams 11/04/24 14:08 Completed XR femur LT min 2V* [id number] Stat Exams 11/04/24 13:21 Completed XR pelvis 1-2V* [id number] Stat Exams 11/04/24 13:21 Completed Laboratory Last Values WBC 19.50 10^3/uL (3.29-11.43) H 11/04/24 13:37 RBC 6.01 10^6/uL (3.85-5.65) H 11/04/24 13:37 Hgb 17.30 g/dL (11.27-16.99) H 11/04/24 13:37 Hct 53.1 % (37-53) H 11/04/24 13:37 MCV 88.4 fl (82-101) 11/04/24 13:37 MCH 28.8 pg (27-33) 11/04/24 13:37 MCHC 32.6 g/dL (30-55) 11/04/24 13:37 RDW 14.5 % (12.1-15.1) 11/04/24 13:37 Plt Count 243 10^3/cmm (157-399) 11/04/24 13:37 MPV 9.2 fL (7.4-10.4) 11/04/24 13:37 Neut % (Auto) 89.1 % 11/04/24 13:37 Lymph % (Auto) 2.9 % 11/04/24 13:37 Cross % (Auto) 6.8 % 11/04/24 13:37 Eos % (Auto) 0.2 % 11/04/24 13:37 Baso % (Auto) 0.5 % 11/04/24 13:37 Neut # (Auto) 17.39 10^3/uL (1.8-7.7) H 11/04/24 13:37 Lymph # (Auto) 0.6 10^3/uL (0.8-4.8) L 11/04/24 13:37 Cross # (Auto) 1.3 10^3/uL (0.2-0.9) H 11/04/24 13:37 Eos # (Auto) 0.0 10^3/uL (0.0-0.8) 11/04/24 13:37 Baso # (Auto) 0.1 10^3/uL (0.0-0.1) 11/04/24 13:37 Nucleated RBC % (auto) 0 % 11/04/24 13:37 Nucleated RBCs # 0.0 /100WBC 11/04/24 13:37 Sodium 136 mmol/L (136-145) 11/04/24 13:37 Potassium 4.5 mmol/L (3.5-5.1) 11/04/24 13:37 Chloride 98 mmol/L (98-107) 11/04/24 13:37 Carbon Dioxide 26 mmol/L (22-29) 11/04/24 13:37 Anion Gap 16.5 (5-19) 11/04/24 13:37 BUN 13 mg/dL (8-23) 11/04/24 13:37 Creatinine 0.8 mg/dL (0.7-1.2) 11/04/24 13:37 GFR Calculation Not Reportable 11/04/24 13:37 Glucose 134 mg/dL (65-115) H 11/04/24 13:37 Calculated Osmolality 284 mOsm/kg (285-295) L 11/04/24 13:37 Lactic Acid 2.8 mmol/L (0.5-2.2) H 11/04/24 13:37 Calcium 9.2 mg/dL (8.5-10.5) 11/04/24 13:37 Total Bilirubin 1.6 mg/dL (0.15-1.2) H 11/04/24 13:37 AST 42 U/L (0-40) H 11/04/24 13:37 ALT 37 U/L (0-41) 11/04/24 13:37 Alkaline Phosphatase 50 U/L (40-130) 11/04/24 13:37 Creatine Kinase 789 U/L (39-308) H* 11/04/24 13:37 C-Reactive Protein 29.6 mg/L (0.0-4.9) H 11/04/24 13:37 NT-Pro-B Natriuret Pep 137 pg/mL (0-450) 11/04/24 13:37 Total Protein 7.6 g/dL (6.6-8.7) 11/04/24 13:37 Albumin 4.2 g/dL (3.5-5.2) 11/04/24 13:37 Globulin 3.4 g/dL (1.3-4.6) 11/04/24 13:37 Procalcitonin 0.14 ng/mL (0-0.5) 11/04/24 13:37 TSH 2.68 uIU/mL (0.27-4.20) 11/04/24 13:37 Urine Color Red (Yellow) A 11/04/24 14:34 Urine Appearance Turbid (CLEAR) A 11/04/24 14:34 Urine pH 5.5 (5-7) 11/04/24 14:34 Ur Specific [place] 1.018 (1.005-1.030) 11/04/24 14:34 Urine Protein 2+ (Negative) A 11/04/24 14:34 Urine Glucose (UA) Negative (Normal) 11/04/24 14:34 Urine Ketones 1+ (Negative) H 11/04/24 14:34 Urine Blood 3+ (Negative) A 11/04/24 14:34 Urine Nitrate Negative (Negative) 11/04/24 14:34 Urine Bilirubin Negative (Negative) 11/04/24 14:34 Urine Urobilinogen 1.0 mg/dL (Negative) 11/04/24 14:34 Ur Leukocyte Esterase 1+ (Negative) A 11/04/24 14:34 Urine RBC >100 /hpf (0-2) H 11/04/24 14:34 Urine WBC 21-50 /hpf (0-5) H 11/04/24 14:34 Ur Squamous Epith Cells 0-5 /hpf (0-5) 11/04/24 14:34 Amorphous Sediment Not Reportable 11/04/24 14:34 Urine Bacteria None seen /hpf (NONE) 11/04/24 14:34 Hyaline Casts 5.07 /lpf 11/04/24 14:34 Urine Yeast 1+ /hpf H 11/04/24 14:34 Radiology Impressions Cervical Spine CT 11/04/24 13:21 IMPRESSION: Multilevel cervical spondylosis without evidence of acute osseous abnormality. Femur X-Ray 11/04/24 13:21 IMPRESSION: Left femoral neck fracture. Head CT 11/04/24 13:21 IMPRESSION: 1. Cerebral atrophy and chronic cerebral microvascular disease. 2. No evidence of acute intracranial process. 3. Possible bilateral otomastoiditis. Correlate clinically. Pelvis X-Ray 11/04/24 13:21 IMPRESSION: Left femoral neck fracture. Chest X-Ray 11/04/24 14:08 Impression: Atherosclerosis. Abdomen/Pelvis CT 11/04/24 15:19 IMPRESSION: 1. Acute left femoral neck fracture with proximally 1.2 cm proximal displacement of the femoral shaft. 2. 4 x 6 x 9 mm left-sided proximal ureteral stone. Mild hydronephrosis. 3. Bilateral nonobstructing renal calculi measuring up to 8 mm on the left. 4. 12 mm probable hyperdense cysts in the mid left kidney. This could be further characterized with renal ultrasound if indicated. 5. Postoperative changes from distal colectomy with left lower quadrant colostomy. 6. Stable small peristomal hernia containing nonobstructed small bowel. 7. Hepatic steatosis. 8. Moderate nonspecific prostate enlargement. COMMENTS: Consistent with the [employer]'s Incidental Findings Committee white paper (J Am Gatito Radiol 2018): Any incidental renal lesion less than 1 cm or classified as too small to characterize, or any incidental cystic renal lesion characterized as simple-appearing, is likely benign. No follow-up imaging is recommended for these lesions per consensus recommendations based on imaging criteria. Recent Clincial Data Last Vital Signs Temp 97.5 F L 11/04/24 16:41 Pulse 103 H 11/04/24 17:56 Resp 18 11/04/24 17:56 BP 159/67 11/04/24 16:41 Pulse Ox 92 11/04/24 17:56 O2 Del Method Room Air 11/04/24 17:56 Vital Signs Temp Pulse Resp BP Pulse Ox O2 Del Method 11/04/24 17:56 103 H 18 92 Room Air 11/04/24 17:56 92 Room Air 11/04/24 16:42 Room Air 11/04/24 16:41 97.5 F L 103 H 17 159/67 91 Room Air 11/04/24 16:41 97 158/69 11/04/24 16:06 97 158/69 91 05/01/25 15:38 98 166/88 94 11/04/24 13:10 98.9 F 105 H 18 149/98 96 Room Air Intake & Output/Weight 11/02/24 11/03/24 11/04/24 11/05/24 06:59 06:59 06:59 06:59 Intake Total 0 / 0 Balance 0 / 0 Weight 98.118 kg Vitals Last Vital Signs Temp 97.5 F L 11/04/24 16:41 Pulse 103 H 11/04/24 17:56 Resp 18 11/04/24 17:56 BP 159/67 11/04/24 16:41 Pulse Ox 92 11/04/24 17:56 O2 Del Method Room Air 11/04/24 17:56 TS Medications Medications Acetaminophen (Acetaminophen 325 Mg Tablet) 650 mg PO Q6H PRN PRN Reason: Mild/Mod Pain Or Temp >/= 101 Hydromorphone HCl (Hydromorphone 0.5 Mg/0.5 Ml Inj) 0.5 mg IVP Q4H PRN PRN Reason: PAIN Sodium Chloride (Sodium Chloride 0.9%) 1,000 mls @ 75 mls/hr IV .[id number] [facility] Last Admin: 11/04/24 17:54 Dose: 75 mls/hr Piperacillin Sod/Tazobactam (Sod 3.375 gm/ Sodium Chloride) 50 mls @ 12.5 mls/hr IV Q8H [facility]; Protocol Last Admin: 11/04/24 17:52 Dose: 12.5 mls/hr Naloxone HCl (Naloxone 0.4 Mg/Ml Sdv) 0.1 mg IVP Q2M PRN PRN Reason: OPIATERV Ondansetron HCl (Ondansetron 2 Mg/Ml Sdv 2 Ml) 4 mg IVP Q8H PRN PRN Reason: vomiting, or N/V if npo Pantoprazole Sodium (Pantoprazole 40 Mg Sdv) 40 mg IVP Q24H [facility] Last Admin: 11/04/24 17:51 Dose: 40 mg Tamsulosin HCl (Tamsulosin 0.4 Mg Capsule) 0.4 mg PO BID [facility] Last Admin: 11/04/24 17:51 Dose: 0.4 mg Discontinued Medications Ceftriaxone Sodium (Ceftriaxone 1,000 Mg Sdv) 1,000 mg IVP ONCE ONE; Protocol Stop: 11/04/24 15:17 Last Admin: 11/04/24 15:33 Dose: 1,000 mg Ceftriaxone Sodium (Ceftriaxone 1,000 Mg Sdv) 1,000 mg IVP Q24H MARGARET; Protocol Enoxaparin Sodium (Enoxaparin 40 Mg/0.4 Ml Syringe) 40 mg SUBCUT Q24H MARGARET Fentanyl (Fentanyl 50 Mcg/Ml Inj 2ml) 50 mcg IVP ONCE ONE Stop: 11/04/24 14:23 Last Admin: 11/04/24 14:45 Dose: 50 mcg Lactated Ringer's (Lactated Ringers) 1,000 mls @ 999 mls/hr IV .Q1H1M ONE Stop: 11/04/24 14:21 Last Admin: 11/04/24 14:06 Dose: 999 mls/hr Morphine Sulfate (Morphine 4 Mg/Ml Sdv 1 Ml) 4 mg IVP ONCE ONE Stop: 11/04/24 15:17 Last Admin: 11/04/24 15:32 Dose: 4 mg Ondansetron HCl (Ondansetron 2 Mg/Ml Sdv 2 Ml) 4 mg IVP ONCE ONE Stop: 11/04/24 14:23 Last Admin: 11/04/24 14:43 Dose: 4 mg Allergies No Known Allergies Allergy (Verified 07/20/24 11:31) Home Medications acetaminophen 500 mg capsule 500 mg PO Q6H PRN Fever Or Pain 09/09/23 [History Confirmed 11/04/24] meloxicam 15 mg tablet 15 mg PO DAILY Left shoulder pain #90 tabs 01/30/24 [Rx Confirmed 11/04/24] tamsulosin 0.4 mg capsule 0.4 mg PO BID #60 caps 04/13/24 [Rx Confirmed 11/04/24] Discharge Plan Discharge Patient Disposition: Home Condition: Stable Prescriptions: No Action acetaminophen 500 mg capsule 500 mg PO Q6H PRN (Reason: Fever Or Pain) meloxicam 15 mg tablet 15 mg PO DAILY Qty: 90 0RF tamsulosin 0.4 mg capsule 0.4 mg PO BID Qty: 60 2RF Referrals: Mark Thomas [Primary Care Provider, Family Practice] Patient Instructions: Opioid Safety, Acute Wound Care (DC), Post Anesthesia Care Transfer Attestations Time Spent in Transfer Care: greater than 30 min Quality Metrics Clinical Quality Measures [ No reported AMI, CVA or VTE this stay] Coding Level of Care Code Acute Code for [facility] Fwd Diagnoses Closed fracture of left hip, initial encounter S72.002A Encounter type: initial encounter Fracture type: closed
[2024-11-04 18:39] LABS: Lactic Acid level (Lactate) 1.6 mmol/L (0.5-2.2)
[2024-11-04 19:57] LABS: Estmated Average Glucose 128; Hemoglobin A1C 6.1 % (4.0-6.0)
[2024-11-05] MEDS: piperacillin-tazobactam 3.375 GM in sodium chloride 0.9% (plus) 50 ML IV ×2 (00:50→09:17)
[2024-11-05] MEDS: HYDROmorphone 0.5 MG/0.5 ML INJ IVP ×3 (00:54→09:02)
[2024-11-05 04:00] VITALS: BP 118/75; PULSE 98; RESP 19; TEMP 36.9; O2SAT 91
[2024-11-05 05:45] LABS: Basophils # 0.1 10^3/uL (0.0-0.1); Basophils % 0.4 %; Eosinophils # 0.8 10^3/uL (0.0-0.8); Eosinophils % 5.9 %; Hematocrit 47.6 % (37-53); Lymphocytes # 0.5 10^3/uL (0.8-4.8); Lymphocytes % 3.7 %; Mean Corpuscular HGB Conc 31.9 g/dL (30-55); Mean Corpuscular Hemoglobin 28.8 pg (27-33); Mean Corpuscular Volume 90.2 fl (82-101); Mean Platelet Volume 9.9 fL (7.4-10.4); Monocytes # 0.8 10^3/uL (0.2-0.9); Monocytes % 6.3 %; Neutrophils # 11.06 10^3/uL (1.8-7.7); Neutrophils % 83.3 %; Nucleated Red Blood Cells % 0 %; Platelet Count 213 10^3/cmm (157-399); Red Blood Count 5.28 10^6/uL (3.85-5.65); Red Cell Distribution Width 14.6 % (12.1-15.1); White Blood Count 13.26 10^3/uL (3.29-11.43)
[2024-11-05 06:07] LABS: Alanine Aminotransferase 26 U/L (0-41); Albumin Level 3.4 g/dL (3.5-5.2); Alkaline Phosphatase 41 U/L (40-130); Anion Gap 14.4 (5-19); Aspartate Amino Transferase 28 U/L (0-40); Blood Urea Nitrogen 15 mg/dL (8-23); Calcium 8.4 mg/dL (8.5-10.5); Carbon Dioxide 24 mmol/L (22-29); Chloride 102 mmol/L (98-107); Creatinine Clr Calc Pharmacy 62.4324; Globulin 2.9 g/dL (1.3-4.6); Glucose 132 mg/dL (65-115); Magnesium 1.7 mg/dL (1.7-2.3); Osmolality Calculated 285 mOsm/kg (285-295); Phosphorus 2.9 mg/dL (2.5-4.5); Potassium 4.4 mmol/L (3.5-5.1); Sodium 136 mmol/L (136-145); Total Bilirubin 1.6 mg/dL (0.15-1.2); Total Protein 6.3 g/dL (6.6-8.7)
[2024-11-05] MEDS: sodium chloride 0.9% 1,000 ML 75 ML IV (06:21)
[2024-11-05 07:56] VITALS: BP 155/73; PULSE 92; RESP 23; TEMP 36.4; O2SAT 95
[2024-11-05] MEDS: tamsulosin 0.4 mg Capsule PO (09:17)
[2024-11-05 11:56] VITALS: PULSE 103; RESP 20; O2SAT 96
[2024-11-05 12:00] VITALS: BP 136/68; PULSE 97; RESP 15; TEMP 36.7; O2SAT 95
--- NOTE | 2024-11-05 12:25 | P.PN_ITS ---
Subjective 2 Subjective: Patient was seen this morning, he is alert oriented x 2, follows all commands, continues to complain of left flank pain, left hip pain, no fevers, no chills he does have episodes of confusion, currently normotensive, afebrile Vitals/I&O/Wt Last Vital Signs Temp 98.1 F 11/05/24 12:00 Pulse 97 11/05/24 12:00 Resp 15 11/05/24 12:00 BP 136/68 11/05/24 12:00 Pulse Ox 95 11/05/24 12:00 O2 Del Method Nasal Cannula 11/05/24 12:00 O2 Flow Rate 2 11/05/24 11:56 11/04/24 11/05/24 11/05/24 22:59 06:59 14:59 Intake Total 50 / 50 1223.75 / 1273.75 1000 / 1000 Output Total 0 / 0 250 / 250 Balance 50 / 50 973.75 / 1023.75 1000 / 1000 Weight last 48 hrs Weight 102.058 kg Weight 98.118 kg Weight 90.718 kg Physical Exam 2 Const: COMMON NORMALS: no acute distress ORIENTATION/CONSCIOUSNESS: Yes awake, Yes oriented to person and Yes oriented to place; not oriented to time Eye: COMMON NORMALS: Equal, round and reactive pupils present PUPIL: Yes Equal, round and reactive pupils present Neck/C-Spine: COMMON NORMALS: no JVD Resp: COMMON NORMALS: normal respiratory effort, No retractions, No use of accessory muscles and clear to auscultation bilaterally AUSCULTATION: clear to auscultation bilaterally Cardio: COMMON NORMALS: no JVD, regular rate, regular rhythm, S1 normal heart sound present and S2 normal heart sound present RATE: regular rate RHYTHM: regular rhythm HEART SOUNDS: S1 normal heart sound present and S2 normal heart sound present GI: COMMON NORMALS: Normal to inspection, nondistended, normoactive bowel sounds present and non-tender Extremity: COMMON NORMALS: no pedal edema Neuro: SENSORIUM/ORIENTATION: Yes oriented to person, Yes oriented to place and No oriented to time Psych: COMMON NORMALS: mental status grossly normal Skin: OTHER: sepsis exam, dpt/pt pulses palpable, no mottling, cap refill<2 seconds Urinary Catheter Management: Marr: Cath Placed During This Visit: yes Reason for Continuing Indwelling Catheter: Other Urinary Catheter Date of Insertion: 11/04/24 Urinary Catheter Time of Insertion: 14:38 Data 11/05/24 04:53 11/05/24 04:53 Micro: Microbiology 11/04/24 14:34 Urine Culture - Preliminary Urine,Clean Catch 11/04/24 17:35 Blood Culture - Preliminary Blood SPECIMEN COLLECTED 11/04/24 17:27 Blood Culture - Preliminary Blood SPECIMEN COLLECTED A&P Assessment and plan (1) Acute encephalopathy: (2) UTI (urinary tract infection): (3) Adenocarcinoma of sigmoid colon: (4) Closed fracture of neck of left femur: (5) Ureteral stone with hydronephrosis: (6) Obstructive uropathy: Plan Acute encephalopathy - Likely second to UTI, obstructive uropathy, sepsis - CT head - Neurochecks - Aspiration precautions Sepsis, source criteria was met, secondary UTI, given leukocytosis, - Has received fluid bolus in the emergency room - Continue IV fluids Urinary tract infection, with obstructive uropathy - CT scan abdomen pelvis has evidence of obstructive uropathy 2. 4 x 6 x 9 mm left-sided proximal ureteral stone. Mild hydronephrosis. 3. Bilateral nonobstructing renal calculi measuring up to 8 mm on the left. - Continue zosyn Rhabdomyolysis, IV fluids Adenocarcinoma of the sigmoid colon, with colostomy in place Left hip fracture 1. Acute left femoral neck fracture with proximally 1.2 cm proximal displacement of the femoral shaft. - Dilaudid 0.5 mg IV push every 4 hours as needed for pain - Lovenox for DVT prophylaxis - Zofran for nausea - Full code patient accepted by [facility], spoke to hospitalist, awaiting bed PDMP PDMP Reviewed: Not Reviewed Attestations 2 Medical Necessity Statement*: patient requires hsopitalization for sepsis, uti, obstructive uropathy, acute encephalopathy Diagnoses Acute encephalopathy G93.40 UTI (urinary tract infection) N39.0 Adenocarcinoma of sigmoid colon C18.7 Closed fracture of neck of left femur S72.002A Encounter type: initial encounter Ureteral stone with hydronephrosis N13.2 Obstructive uropathy N13.9
--- NOTE | 2024-11-05 12:28 | PC.NURSE ---
Patient's daughter called and updated that patient is leaving at this time to go to [facility].
--- NOTE | 2024-11-05 12:59 | PC.NURSE ---
Called report to [facility] and spoke to Chuyita LUJAN. All questions answered at this time. Manny Gavin transporting patient. Left the floor at 1245.
[2024-11-05 13:00] VITALS: BP 136/68; PULSE 97; RESP 15; TEMP 36.7; O2SAT 95
== END 2024-11-05 13:02 | disposition short-term general hospital (02) | DRG 871 ==
LOC: ER 14:53 → ER IP 15:31 → MEDSURG 15:37
PROVIDERS: Admitting Provider Family Medicine; Emergency Provider Emergency Medicine; PCP Family Medicine; Visit Provider Family Medicine
DX: A41.9 Sepsis, unspecified organism (principal); G93.41 Metabolic encephalopathy; S72.002A Fracture of unspecified part of neck of left femur, initial encounter for closed fracture; N39.0 Urinary tract infection, site not specified; N13.2 Hydronephrosis with renal and ureteral calculous obstruction; M62.82 Rhabdomyolysis; W01.0XXA Fall on same level from slipping, tripping and stumbling without subsequent striking against object, initial encounter; M19.012 Primary osteoarthritis, left shoulder; M19.011 Primary osteoarthritis, right shoulder; Z85.038 Personal history of other malignant neoplasm of large intestine; Z90.49 Acquired absence of other specified parts of digestive tract; Z87.440 Personal history of urinary (tract) infections; Z87.891 Personal history of nicotine dependence
CPT/HCPCS: 36415; 51702; 70450; 71045; 72125; 72170; 73552; 74176; 80053; 81001; 82550; 83036; 83605; 83735; 83880; 84100; 84145; 84443; 85025; 86140; 87040; 87086; 93005; 94664; 96361; 96374; 96375; 99285; J0696; J1171; J2270; J2405; J2470; J2543; J3010; J7030; J7120; J9999